=== PATIENT | male | born 1960 | race Caucasian/White ===

== ENCOUNTER 2019-01-29 23:54 | Emergency (ER) | payer MEDICARE, OTHER ==
[2019-01-30] MEDS ORDERED: ASPIRIN TABLET 325 MG TAB PO ONE (00:22)
[2019-01-30] MEDS ORDERED: HEPARIN SODIUM (PORCINE) 5,000 U/ML VIAL IV ONE (00:23)
--- NOTE | 2019-01-30 00:44 | RAD ---
Study: Two views of the chest. : 1960. TECHNIQUE: PA and lateral views of the chest. Comparison: None. Clinical history: chest pain. Comparison: March 18, 2010. Findings: Cardiomediastinal silhouette is normal. Minimal bibasilar atelectasis. No pneumothorax or pleural effusion. Degenerative changes present.. IMPRESSION: Minimal bibasilar atelectasis. Electronically signed by: Vipin Raygoza MD 01/30/2019 12:41 AM CDT
[2019-01-30] MEDS ORDERED: CLOPIDOGREL 75 MG TAB PO ONE (01:46)
--- NOTE | 2019-01-30 01:58 | ED.PDOC ---
History of Present Illness - General Chief Complaint: Chest Pain/IA Stated Complaint: chest pain Time Seen by Provider: 01/29/19 23:58 Source: patient - History of Present Illness Initial Comments: the patient's a 58-year-old male presenting to the emergency room secondary to increasing chest pain with activity over the last 24-48 hours. Chest pain is mostly due with aerobic activity. He is now getting significant chest pain with walking as little as 50 feet. He does have a history of coronary artery disease with [address] William in the past. He does already take Plavix. He just took a nitroglycerin just before his arrival here. Chest pain peaks at around 8 out of 10. He does have associated shortness of breath with it. He is currently chest pain-free. He is pleasant and cooperative. Lungs are clear.he has had to use his nitroglycerin 4 times today and twice yesterday.he reports that he had not used it in more than 10 years prior. Timing/Duration: 24 hours Severity: moderate Improving Factors: medication, rest Worsening Factors: movement Associated Symptoms: chest pain Allergies/Adverse Reactions: Allergies UNOBTAINABLE Allergy (Verified 01/30/19 00:06) Review of Systems - Review of Systems Constitutional: States: no symptoms reported EENTM: States: no symptoms reported Respiratory: States: no symptoms reported Cardiology: States: no symptoms reported Gastrointestinal/Abdominal: States: see HPI Genitourinary: States: no symptoms reported Musculoskeletal: States: no symptoms reported Skin: States: no symptoms reported Neurological: States: no symptoms reported Endocrine: States: no symptoms reported All other Systems: No Change from Baseline Past Medical History (General) - Patient Medical History Hx Seizures: No Hx Stroke: No Hx Dementia: No Hx Asthma: No Hx of COPD: No Hx Cardiac Disorders: Yes Hx Congestive Heart Failure: No Hx Pacemaker: No Hx Hypertension: Yes Hx Thyroid Disease: No Hx Diabetes: No Hx Gastroesophageal Reflux: No Hx Renal Disease: No Hx Cancer: No Hx of HIV: No Hx Hepatitis C: No Hx MRSA: No Surgical History: other - Vaccination History Hx Tetanus, Diphtheria Vaccination: Yes Hx Influenza Vaccination: Yes Hx Pneumococcal Vaccination: Yes Immunizations Up to Date: Yes - Social History Hx Tobacco Use: No Hx Alcohol Use: No Hx Substance Use: No Hx Substance Use Treatment: No Hx Depression: No Feels Threatened In Home Enviroment: No Feels Threatened In a Relationship: No Hx Physical Abuse: No Hx Emotional Abuse: No Hx Suspected Abuse: No - Activities of Daily Living Hospice Agency (if applicable):: None - Female History Patient is a Female of Child Bearing Age (10 -59 yrs old): No - Triage Comment ED Triage Comment: pt is A/A/O x4, Family Medical History - Family History Mother Family History: Unknown Physical Exam - Physical Exam General Appearance: Alert, Comfortable, No apparent distress Eye Exam: bilateral normal Ears, Nose, Throat: hearing grossly normal, normal ENT inspection, normal pharyn x Neck: full range of motion, supple Respiratory: chest non-tender, lungs clear, normal breath sounds, no respiratory distress, no accessory muscle use Cardiovascular/Chest: normal peripheral pulses, regular rate, rhythm, no edema Peripheral Pulses: radial,right: 2+, radial,left: 2+, dorsalis pedis,right: 2+, dorsalis pedis,left: 2+ Gastrointestinal/Abdominal: non tender, soft Rectal Exam: deferred Back Exam: normal inspection, no CVA tenderness, no vertebral tenderness Extremity: normal range of motion, non-tender, normal inspection, no pedal edema, normal capillary refill Neurologic: 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 This is consistent with unstable angina in this patient with known coronary artery disease. The patient has received heparin, aspirin, nitroglycerin and an 150 of Plavix additional to his Baseline dosage. he is currently chest pain-free. Troponin is very slightly elevated. EKG is reassuring. The patient is being transferred for cardiology evaluation. His channel worker is Dr. William. - Results/Orders Results/Orders: Vital Signs - 24 hr 04/01/30/19 01/30/19 00:00 00:20 01:28 Temperature 98.8 F Pulse Rate 83 83 78 Pulse Rate [ 83 83 78 pulse ox] Respiratory 20 18 18 Rate Blood Pressure 137/82 106/76 [Left Arm] O2 Sat by Pulse 96 95 Oximetry 01/30/19 00:22 Telemetry .CONTINUOUS 01/30/19 00:30 EKG STAT Laboratory Results - last 24 hr 01/30/19 01/30/19 01/30/19 00:22 00:22 00:22 WBC 7.6 RBC 4.73 Hgb 14.6 Hct 43.5 MCV 92.1 MCH 31.0 MCHC 33.6 RDW 14.9 H Plt Count 185 MPV 8.3 Absolute Neuts (auto) 3.70 Absolute Lymphs (auto) 2.80 Absolute Monos (auto) 0.70 Absolute Eos (auto) 0.30 Absolute Basos (auto) 0.10 Neutrophils % 49.3 Lymphocytes % 36.6 Monocytes % 9.0 Eosinophils % 3.4 Basophils % 1.7 PT 11.1 H INR 1.11 PTT (SP) 27.2 Sodium 138 Potassium 4.0 Chloride 101 Carbon Dioxide 26 Anion Gap 15.0 BUN 20 H Creatinine 0.54 L BUN/Creatinine Ratio 37.0 H Random Glucose 122 H Serum Osmolality 279.6 Calcium 9.5 Magnesium 1.8 Total Bilirubin 0.6 AST 54 H ALT 31 Alkaline Phosphatase 91 Creatine Kinase 49 CK-MB (CK-2) 1.6 CK-MB (CK-2) % Not Reportable Troponin I 0.09 H* B-Natriuretic Peptide 39.2 Serum Total Protein 7.9 Albumin 4.2 Globulin 3.7 H Albumin/Globulin Ratio 1.1 chest x-ray shows no acute pathology. EKG shows normal sinus rhythm at 82 bpm. Normal QT interval. Normal axis. Q waves in lead 3. Normal R-wave progression. Mild left atrial dilation. Departure - Departure Clinical Impression: Unstable angina Disposition: Transfer to Hospital Departure Forms: ED Discharge - Pt. Copy, Patient Portal Self Enrollment Transfer to Outside Facility - Transfer Information Accepting Provider:: dr healy Accepting Facility: [facility] Reason for Transfer: required specialist not available
[2019-01-30 02:08] VITALS: O2SAT 96
[2019-01-30 03:25] VITALS: BP 115/72; TEMP 98.4
== END 2019-01-30 02:58 | disposition short-term general hospital (02) ==
LOC: ER 23:54
DX: I25.110 Atherosclerotic heart disease of native coronary artery with unstable angina pectoris (principal); I10 Essential (primary) hypertension; Z95.5 Presence of coronary angioplasty implant and graft; Z79.02 Long term (current) use of antithrombotics/antiplatelets
CPT/HCPCS: 36415; 71046; 80053; 82550; 82553; 83735; 83880; 84484; 85025; 85610; 85730; 93005; J1644

== ENCOUNTER 2019-02-10 12:45 | Inpatient (IN) | payer MEDICARE ==
[2019-02-10] MEDS ORDERED: MAGNESIUM HYDROXIDE 30 ML UD PO PRN (14:38)
[2019-02-10] MEDS ORDERED: SODIUM PHOS/BIPHOS ENEMA ADULT 133 ML BTTL PR PRN (14:38)
[2019-02-10] MEDS ORDERED: ENOXAPARIN SODIUM 40 MG/0.4 ML SYG SUBCU SCH (15:00)
--- NOTE | 2019-02-10 15:08 | HP ---
SUPERVISING PHYSICIAN: Kang Figueroa MD SWING BED ADMISSION CHIEF COMPLAINT: Deconditioning post surgical intervention. HISTORY OF PRESENT ILLNESS: This is a 59-year-old male patient who was admitted to [facility] on 01/30/19. He was noted to have a non-ST elevation myocardial infarction and was given Plavix. Eventually he was taken to the agricultural labor camp [facility] by Dr. William. He was noted to have an in-stent restenosis and required a coronary artery bypass graft. The surgery was delayed until 02/05/19 due to the Plavix. On 02/05/19, he did have a coronary artery bypass graft x3 with left internal mammary artery as well as left leg endoscopic saphenous vein graft harvest. There were no intraoperative complications and the patient went to the ICU post surgery. He progressed fairly well and was actually up to the chair the next day. He ended up going to the ninth floor for further management at that time. He did have development of atrial fibrillation and was started on antiarrhythmic medications at that time. He was referred to [facility] for Swing Bed and further physical therapy. At the time of examination, the patient is a little bit short of breath when moving to the bed, but otherwise in no distress. PAST MEDICAL HISTORY: 1. Coronary artery disease. 2. Hypertension. 3. Hyperlipidemia. 4. Allergies. PAST SURGICAL HISTORY: 1. Hernia repair. 2. Percutaneous transluminal coronary angioplasty with stent. MEDICATIONS: Please see the med rec list once it is completed. ALLERGIES: NO KNOWN DRUG ALLERGIES. FAMILY HISTORY: The patient does not know of any significant family history. SOCIAL HISTORY: He quit smoking. He does have a 20 pack year history of smoking. No alcohol, no illicit drugs. REVIEW OF SYSTEMS: CONSTITUTIONAL: No fever or chills. No recent weight loss or weight gain. HEENT: No headaches, vision changes, ear pain, nasal congestion or throat pain. RESPIRATORY: He has a little bit of a cough and it has been productive according to the patient, but he it is less productive than it was. No shortness of breath or pleuritic chest pain. CARDIOVASCULAR: No chest pain, palpitations or peripheral edema, but he did have a burst of atrial fibrillation yesterday. GASTROINTESTINAL: No nausea, vomiting, diarrhea, constipation or abdominal pain. GENITOURINARY: No dysuria, frequency or flank pain. MUSCULOSKELETAL: No muscle cramps, joint pain or joint swelling. SKIN: No rashes, lesions or wounds. ENDOCRINE: No polydipsia, polyuria or polyphagia. No heat or cold intolerance. NEUROLOGIC: No syncope, paresthesias or seizures. PHYSICAL EXAMINATION: VITAL SIGNS: GENERAL: Mr. Banda is a 59-year-old male patient in no active distress. NEUROLOGIC: The patient is alert and oriented. CHEST: Lung sounds are clear to auscultation bilaterally. CARDIOVASCULAR: Regular rate and rhythm. Normal S1, S2. ABDOMEN: Soft, obese. Positive bowel sounds. No tenderness to palpation. GENITOURINARY: Deferred. EXTREMITIES: Lower extremities with 1+ pitting edema. SKIN: Chest has an incision, midline sternum which is approximated with no sign of infection. Chest wounds covered with a dressing which is dry and intact. ASSESSMENT: 1. Physical deconditioning status post coronary artery bypass graft. 2. Coronary artery disease status coronary artery bypass graft. 3. Hypertension. 4. Paroxysmal atrial fibrillation. 5. Hyperlipidemia. PLAN: At this time, we will admit the patient to Swing Bed for continued physical therapy and continue with the medications he was discharged from the hospital on. He needs some Lasix given his significant edema. We will be cautious with this to prevent any dehydration. #[id number] [facility]
[2019-02-10] MEDS ORDERED: [UNRECOGNIZED DRUG - OTHER] PO PRN (18:31)
[2019-02-10] MEDS ORDERED: OXYCODONE PO PRN (18:31)
[2019-02-10] MEDS ORDERED: ONDANSETRON 4 MG TAB PO PRN (18:31)
[2019-02-10] MEDS ORDERED: ACETAMINOPHEN PO PRN (18:31)
[2019-02-10] MEDS ORDERED: APIXABAN 2.5 MG TAB PO ONE (19:13)
[2019-02-10] MEDS: DOCUSATE SODIUM 100 MG CAP PO SCH (20:41)
[2019-02-10] MEDS: METOPROLOL SUCCINATE XL 25 MG TAB PO SCH (20:41)
[2019-02-10] MEDS: NON-FORMULARY MEDICATION 1 EA MIS (Apixaban [Eliquis] 5 MG) PO SCH (20:41)
[2019-02-10] MEDS: AMIODARONE HCL 200 MG TAB PO SCH (20:42)
[2019-02-10] MEDS: IPRATROPIUM/ALBUTEROL 3 ML VIAL NEB SCH (20:55)
[2019-02-11] MEDS: IPRATROPIUM/ALBUTEROL 3 ML VIAL NEB SCH ×5 (03:30→20:34)
[2019-02-11] MEDS ORDERED: APIXABAN 2.5 MG TAB PO ONE (07:15)
[2019-02-11] MEDS: AMIODARONE HCL 200 MG TAB PO SCH ×2 (08:10→21:22)
[2019-02-11] MEDS: NON-FORMULARY MEDICATION 1 EA MIS (Apixaban [Eliquis] 5 MG) PO SCH (08:10)
[2019-02-11] MEDS: POLYETHYLENE GLYCOL 3350 17 GM PCKT PO SCH (08:12)
[2019-02-11] MEDS: DOCUSATE SODIUM 100 MG CAP PO SCH ×2 (08:13→21:23)
--- NOTE | 2019-02-11 08:56 | RAD ---
EXAM DESCRIPTION: Chest,1 View CLINICAL HISTORY: s/p CABG FINDINGS/ IMPRESSION: Comparison 01/30/2019 Interval cardiac surgery with median sternotomy wires. Marked cardiomegaly. Vascular congestion. Increased density in the lung bases compatible with atelectasis. Some of this likely residual edema. Bilateral pleural effusions blunting the costophrenic angle Electronically signed by: Kang Del Rio MD 02/11/2019 8:54 AM CDT
[2019-02-11] MEDS ORDERED: DOCUSATE SODIUM 100 MG CAP PO SCH (09:00)
[2019-02-11] MEDS: POTASSIUM CHLORIDE 20 MEQ TAB PO SCH (09:59)
[2019-02-11] MEDS: FUROSEMIDE 40 MG TAB PO SCH (09:59)
[2019-02-11] MEDS: ACETAMINOPHEN 500 MG TAB PO PRN (13:00)
--- NOTE | 2019-02-11 13:56 | PN ---
SUPERVISING PHYSICIAN: Kang Figueroa MD DATE: 02/11/19 SUBJECTIVE: The patient states he feels okay. He is sitting up in a chair. He gets short of breath with any exertion. OBJECTIVE: VITAL SIGNS: Blood pressure 106/69. Heart rate 100. Respiratory rate 18. Temperature 98.5. Oxygen saturation 92%. GENERAL: Mr. Banda is a 59-year-old male patient in no active distress currently. NEUROLOGIC: Alert and oriented. LUNGS: Diminished in the bases, otherwise clear to auscultation bilaterally. CARDIOVASCULAR: Regular rate and rhythm. Normal S1, S2. ABDOMEN: Soft, obese. Positive bowel sounds. EXTREMITIES: Lower extremities with 2+ edema. Pulses 2+. Capillary refill is less than 2 seconds. LABORATORY: I did check his lab this morning as well as chest x-ray. His chest x-ray shows vascular congestion and bilateral atelectasis and likely bilateral pleural effusions. Looking at his labs, he shows white count 18.5, hemoglobin 8.3, hematocrit 24.8, platelet count 366. He does have 6% bands. Sodium 133, potassium 3.5, chloride 96, CO2 25, BUN 22, creatinine 0.71, glucose 114, calcium 8.4. ASSESSMENT: 1. Physical deconditioning status post coronary artery bypass graft surgery. 2. Coronary artery disease status coronary artery bypass graft. 3. Hypertension. 4. Paroxysmal atrial fibrillation. 5. Hyperlipidemia. 6. Anasarca. PLAN: He does have an elevated white count. I do not know any obvious sign of infection at this time. His chest x-ray is more indicative of a volume issue, not an infectious process. He is also afebrile. I will hold off on antibiotics at this time unless he starts to show sign of infection. I will repeat his labs tomorrow. If he has an increase in his white count, I think we need to empirically place him on antibiotics. Also, the patient could really benefit from daily Lasix at this time. I am going to go ahead and put him on a daily dose of p.o. Lasix as well as potassium. He has a pretty significant amount of anasarca and this would probably help with this quite a bit. #[id number] [facility]
[2019-02-11] MEDS: METOPROLOL SUCCINATE XL 25 MG TAB PO SCH (21:22)
[2019-02-11] MEDS: APIXABAN 2.5 MG TAB PO SCH (21:22)
[2019-02-11] MEDS: SENNOSIDES 8.6 MG TAB PO SCH (21:23)
[2019-02-12] MEDS: ACETAMINOPHEN 500 MG TAB PO PRN (03:24)
[2019-02-12] MEDS: POTASSIUM CHLORIDE 20 MEQ TAB PO SCH (08:10)
[2019-02-12] MEDS: IPRATROPIUM/ALBUTEROL 3 ML VIAL NEB SCH ×2 (08:22→12:39)
[2019-02-12] MEDS ORDERED: POTASSIUM CHLORIDE 20 MEQ TAB PO ONE (08:32)
[2019-02-12] MEDS: FUROSEMIDE 40 MG TAB PO SCH (08:46)
[2019-02-12] MEDS: AMIODARONE HCL 200 MG TAB PO SCH (08:46)
[2019-02-12] MEDS: POLYETHYLENE GLYCOL 3350 17 GM PCKT PO SCH ×2 (08:47→08:51)
[2019-02-12] MEDS: APIXABAN 2.5 MG TAB PO SCH (08:47)
[2019-02-12] MEDS: DOCUSATE SODIUM 100 MG CAP PO SCH (08:47)
[2019-02-12 11:38] VITALS: BP 119/75; TEMP 97.4; O2SAT 95
--- NOTE | 2019-02-12 21:00 | DS ---
SUPERVISING PHYSICIAN: Audi Bustamante M.D. DISCHARGE DIAGNOSIS: 1. Physical deconditioning status post coronary artery bypass graft surgery. 2. Coronary artery disease status coronary artery bypass graft. 3. Hypertension. 4. Paroxysmal atrial fibrillation. 5. Hyperlipidemia. 6. Anasarca. HISTORY OF PRESENT ILLNESS: This is a 59-year-old male patient who was admitted to [facility] on 01/30/19. He was noted to have a non-ST elevation myocardial infarction and was given Plavix. Eventually he was taken to the slabber by Dr. William. He was noted to have an in-stent restenosis and required a coronary artery bypass graft. The surgery was delayed until 02/05/19 due to his Plavix administration. On 0 02/05/19, he did have a coronary artery bypass graft x3 with left internal mammary artery as well as left leg endoscopic saphenous vein graft harvest. He progressed fairly well and was actually up to the chair the next day. He ended up going to the ninth floor for further management at that time. He did have development of atrial fibrillation and was started on antiarrhythmic medications at that time. He was referred to [facility] for Swing Bed and further physical therapy. HOSPITAL COURSE: He has progressed through his physical therapy for strengthening and conditioning, and has met his goals. The patient has requested that he be discharged home today with followup with his primary care physician in [place], Radha Burt as well as followup with his cardiac surgeon, Dr. Bui. LABORATORY: He was admitted with an 18,500 white count, today it was 19,500. Hemoglobin was 8.3 and hematocrit 24.8 yesterday, today it is 8.8 and 26.4. He did not have a shift on his differential. Sodium was slightly low at 133, today it is 132. Potassium is slightly low at 3.5. BUN is 22, creatinine 0.81. Calcium on admission was 8.4, today it is 8.3. Total bilirubin is 1.2. RADIOLOGY: Chest x-ray shows interval cardiac surgery with medial sternotomy wires, marked cardiomegaly, vascular congestion, increased density in the lung bases compatible with atelectasis likely residual edema. Bilateral pleural effusion blunting the costophrenic angle. DISCHARGE PLAN: It is recommended that the patient stay an additional day for further lab studies, but at this time he has requested to be sent home. He is to followup with his primary care provider in [place] within the next week. He is to call Dr. Radha Burt for a hospital followup appointment and needs to have a CBC repeated at that time. At this point there are no signs or symptoms of infection and most likely his elevated white count is due to an inflammatory response, but I have cautioned the patient to watch for any signs or symptoms of an infectious process and to report it to his physician. He also has a followup appointment next week with Dr. Bui, his cardiothoracic surgeon. He is to resume his cardiac diet and increase his activity as tolerated and as per Physical Therapy. Some of his medications were changed at [facility]. I have sent him in a prescription for the new medications as per the orders on the [facility] Discharge Summary. He is to return to the hospital or call Dr. Bui, his cardiovascular surgeon for any problems or complications. DISCHARGE MEDICATIONS: 1. Eliquis. 2. Amiodarone. 3. Colace. 4. Senna. 5. Zantac. 6. MiraLAX. 7. Zofran. 8. Oxycodone. 9. Furosemide. 10. Potassium chloride. 11. DuoNeb. 12. Toprol XL. #[id number] [facility]
== END 2019-02-12 15:50 | disposition home or self-care (01) | DRG 947 ==
LOC: UNDOADMIN 12:45 → MS 12:45
PROVIDERS: ADMIT Family Medicine; ATTEND Nurse Practitioner
DX: R53.81 Other malaise (principal); I21.4 Non-ST elevation (NSTEMI) myocardial infarction; R60.0 Localized edema; I25.10 Atherosclerotic heart disease of native coronary artery without angina pectoris; I10 Essential (primary) hypertension; E78.5 Hyperlipidemia, unspecified; I48.0 Paroxysmal atrial fibrillation; D72.829 Elevated white blood cell count, unspecified; Z95.1 Presence of aortocoronary bypass graft; Z87.891 Personal history of nicotine dependence

== ENCOUNTER 2020-06-03 06:37 | Emergency (ER) | payer MEDICARE ==
[2020-06-03] MEDS ORDERED: SODIUM CHLORIDE 0.9% (FLUSH) 10 ML SYG IV PRN (06:53)
--- NOTE | 2020-06-03 06:55 | ED.PDOC ---
History of Present Illness - General Time Seen by Provider: 06/03/20 06:53 Source: patient - History of Present Illness Initial Comments: 60 yo male with PMH of HTN, CAD, s/p CABG (2019) who presents with cc of acute vision loss in the Right eye. Patient reports he first noticed the symptoms at 4:30 AM today when he woke up to use the bathroom. He reports he went to bed at 10:30 PM last night and was able to see just fine out of both eyes. When he woke up at 4:30 AM he reports total vision loss out of the right eye, which has been persistent since onset. He tried rubbing his eye without any relief of symptoms. No medications tried. Denies any pain, redness, swelling, discharge, other focal neurological deficits, other systemic symptoms. He has never had sudden visual loss like this before. He reports 20/20 vision up until the past 1 to 2 years and now only wears glasses for reading. PCP is Dr. Burt in [place]. He does not see an mobile health vehicle operator. No reported hx of diabetes. Allergies/Adverse Reactions: Allergies NO KNOWN ALLERGY Allergy (Verified 06/03/20 07:05) Home Medications: Ambulatory Orders Metoprolol Succinate [Metoprolol Succinate ER] 12.5 mg PO BEDTIME #30 tab 02/12/19 Aspirin [Aspirin Childrens] 81 mg PO DAILY 06/03/20 Atorvastatin Calcium 40 mg PO DAILY 06/03/20 Buspirone HCl 15 mg PO BID 06/03/20 Citalopram Hydrobromide [Citalopram] 20 mg PO DAILY 06/03/20 Gemfibrozil 600 mg PO DAILY 06/03/20 Indomethacin 25 mg PO TID 06/03/20 Lisinopril & Hydrochlorothiazi [Lisinopril/Hydrochlorothi 10-12.5 mg] 1 tab PO BID 06/03/20 Tamsulosin HCl 0.4 mg PO DAILY 06/03/20 Review of Systems - Review of Systems Review of Systems: 06/03/20 07:33 as per HPI All other Systems: Reviewed and Negative Past Medical History (General) - Patient Medical History Hx Seizures: No Hx Stroke: No Hx Dementia: No Hx Asthma: No Hx of COPD: No Hx Cardiac Disorders: Yes Hx Congestive Heart Failure: No Hx Pacemaker: No Hx Hypertension: Yes Hx Thyroid Disease: No Hx Diabetes: No Hx Gastroesophageal Reflux: No Hx Renal Disease: No Hx Cancer: No Hx of HIV: No Hx Hepatitis C: No Hx MRSA: No - Vaccination History Hx Tetanus, Diphtheria Vaccination: Yes Hx Influenza Vaccination: Yes Hx Pneumococcal Vaccination: Yes - Social History Hx Tobacco Use: No Hx Alcohol Use: No Hx Substance Use: No Hx Substance Use Treatment: No Hx Depression: No Hx Physical Abuse: No Hx Emotional Abuse: No Hx Suspected Abuse: No Family Medical History - Family History Mother Family History: Unknown Physical Exam - Physical Exam General Appearance: Alert, Comfortable, No apparent distress Eye Exam: right other - afferent pupillary defect in both eyes when light is shown into R eye. Normal BL afferent pupillary response when light shown into L eye. Pt reports complete central and peripheral visual loss in R eye on examination. Normal central and peripheral vision Left eye. Retinal exam very limited BL given poor equipment, no dilatation., left normal Ears, Nose, Throat: normal ENT inspection Neck: non-tender, full range of motion, supple, normal inspection Respiratory: lungs clear, normal breath sounds, no respiratory distress, no accessory muscle use Cardiovascular/Chest: normal peripheral pulses, regular rate, rhythm, no edema, no gallop, no JVD, no murmur Peripheral Pulses: radial,right: 2+, radial,left: 2+ Gastrointestinal/Abdominal: non tender, soft, no organomegaly Back Exam: normal inspection Extremity: normal range of motion, non-tender, normal inspection, no pedal edema Neurologic: no motor/sensory deficits, alert, normal mood/affect, oriented x 3, abnormal laborer electroplating II-XII - complete visual loss R eye, CN exam otherwise grossly normal Skin Exam: normal color, warm/dry Progress - Progress Progress: 06/03/20 07:37 Acute painless monocular visual loss, R eye -consider retinal etiology most likely - retinal detachment, CRAO, CRVO, vitreous/retinal hemorrhage, acute maculopathy. Consider also other causes: optic neuritis, ischemic optic neuropathy, ocular tumor, amaurosis fugax, acute angle closure glaucoma, CVA, etc... -pt stable, vitals wnl, BP normal -obtain bloodwork, CT head & orbits -pt requires urgent ophthalmologic consultation. Will consult higher LOC for transfer 06/03/20 08:19 -Spoke with Dr. Vincent Coley at [facility] who accepts pt for ED to ED transfer for urgent ophthalmology consultation. Requests we do gentle globe massage here to see if vision can be restored. -Labs with normal CRP, slightly elevated ESR 45 which I feel is nonspecific. Pt w/o other signs/sx's to suggest temporal arteritis. Otherwise largely unremarkable -CT head and orbits w/o acute processes. 06/03/20 08:29 -No change in symptoms noted with global massage. Andrei Junior MD Billing #[id number] 06/03/20 06:53 Sodium Chloride 0.9% (Flush) [Saline Flush Syringe] 10 ml IV PRN PRN Pulse Oximetry Assessment DAILY 06/03/20 07:00 EKG STAT 06/03/20 09:00 Pulse Ox Daily Laboratory Results - last 24 hr 06/03/20 06/03/20 06/03/20 07:15 07:15 07:15 WBC 7.9 RBC 4.70 Hgb 14.3 Hct 41.9 L MCV 89.0 MCH 30.4 MCHC 34.1 RDW 14.4 Plt Count 196 MPV 8.4 Absolute Neuts (auto) 4.60 Absolute Lymphs (auto) 2.40 Absolute Monos (auto) 0.70 Absolute Eos (auto) 0.20 Absolute Basos (auto) 0.10 Neutrophils % 58.6 Lymphocytes % 29.8 Monocytes % 8.2 Eosinophils % 2.2 Basophils % 1.2 ESR PT 11.1 H INR 1.12 PTT (SP) 26.2 Sodium 135 Potassium 4.3 Chloride 98 L Carbon Dioxide 24 Anion Gap 17.3 BUN 26 H Creatinine 0.95 BUN/Creatinine Ratio 27.4 H Random Glucose 100 Serum Osmolality 274.9 L Calcium 9.5 C-Reactive Protein 06/03/20 06/03/20 07:15 07:15 WBC RBC Hgb Hct MCV MCH MCHC RDW Plt Count MPV Absolute Neuts (auto) Absolute Lymphs (auto) Absolute Monos (auto) Absolute Eos (auto) Absolute Basos (auto) Neutrophils % Lymphocytes % Monocytes % Eosinophils % Basophils % ESR 45 H PT INR PTT (SP) Sodium Potassium Chloride Carbon Dioxide Anion Gap BUN Creatinine BUN/Creatinine Ratio Random Glucose Serum Osmolality Calcium C-Reactive Protein 1.1 H - EKG/XRAY/CT EKG: Sinus - NSR with occas PVCs, HR 75, no ST elevs or q waves noted, axis normal, intervals normal, compared to 01/29/19 EKG PVCs appear new. XRAY: chest - no acute processes per my read Departure - Departure Clinical Impression: Monocular vision loss Time of Disposition: 08:18 Disposition: Transfer to Hospital Condition: Fair Home Medications: Ambulatory Orders Metoprolol Succinate [Metoprolol Succinate ER] 12.5 mg PO BEDTIME #30 tab 02/12/19 Aspirin [Aspirin Childrens] 81 mg PO DAILY 06/03/20 Atorvastatin Calcium 40 mg PO DAILY 06/03/20 Buspirone HCl 15 mg PO BID 06/03/20 Citalopram Hydrobromide [Citalopram] 20 mg PO DAILY 06/03/20 Gemfibrozil 600 mg PO DAILY 06/03/20 Indomethacin 25 mg PO TID 06/03/20 Lisinopril & Hydrochlorothiazi [Lisinopril/Hydrochlorothi 10-12.5 mg] 1 tab PO BID 06/03/20 Tamsulosin HCl 0.4 mg PO DAILY 06/03/20 Transfer to Outside Facility - Transfer Information Decision to Transfer Date: 06/03/20 Decision to Transfer Time: 08:18 Reason for Transfer: required specialist not available - ophthalmology Accepting Provider:: Dr. Vincent Coley Accepting Facility: [facility]
[2020-06-03 07:04] VITALS: TEMP 96.2
[2020-06-03 08:04] VITALS: O2SAT 95
--- NOTE | 2020-06-03 08:28 | RAD ---
EXAM: Chest,1 View CLINICAL INDICATION: Acute loss of vision right eye COMPARISON: There is no previous study for comparison. FINDINGS: A single view of the chest was obtained. The heart size is normal. The pulmonary vascularity is unremarkable. The lungs are clear except for a calcified granuloma in the left mid lung. Sternotomy wires are noted. There is no consolidation, infiltrate, pleural effusion, or pneumothorax. IMPRESSION: No evidence of active pulmonary disease. Electronically signed by: Bandar Monroe MD 06/03/2020 8:27 AM CDT
--- NOTE | 2020-06-03 08:29 | CT ---
EXAM: Head CLINICAL INDICATION: Acute vision loss right eye COMPARISON: There is no previous study for comparison. TECHNIQUE: CT scan was done using contiguous axial 5 mm sections through the brain. This exam was performed according to our departmental dose-optimization program, which includes automated exposure control, adjustment of the mA and/or kV according to patient size and/or use of iterative reconstruction technique. FINDINGS: There is no midline shift, mass effect, or extraaxial fluid collection. There is no evidence of acute intracranial hemorrhage, mass lesion, or cerebral edema. The ventricles and cortical sulci are normal for the patient's age. Bone window images reveal no evidence of a skull fracture. IMPRESSION: No evidence of an acute intracranial process. Electronically signed by: Bandar Monroe MD 06/03/2020 8:27 AM CDT
--- NOTE | 2020-06-03 08:30 | CT ---
EXAM: Orbits CLINICAL INDICATION: Right-sided visual loss COMPARISON: There is no previous study for comparison. TECHNIQUE: The CT scan was done using contiguous axial 2.5 mm sections through the orbits with coronal and sagittal reconstructions. This exam was performed according to our departmental dose-optimization program, which includes automated exposure control, adjustment of the mA and/or kV according to patient size and/or use of iterative reconstruction technique. FINDINGS: There is no fracture. The visualized paranasal sinuses are clear. The globes, extraocular muscles, and optic nerves are intact, symmetric, and unremarkable. The visualized osseous structures appear unremarkable. IMPRESSION: Negative CT scan of the orbits. Electronically signed by: Bandar Monroe MD 06/03/2020 8:28 AM CDT
[2020-06-03 08:32] VITALS: BP 112/72
== END 2020-06-03 08:39 | disposition short-term general hospital (02) ==
LOC: ER 06:37
DX: H54.61 Unqualified visual loss, right eye, normal vision left eye (principal); I49.3 Ventricular premature depolarization; I25.10 Atherosclerotic heart disease of native coronary artery without angina pectoris; I10 Essential (primary) hypertension; Z95.1 Presence of aortocoronary bypass graft